=== PATIENT | female | born 1960 | race Caucasian/White ===

== ENCOUNTER 2016-06-20 07:51 | Day surgery (SDC) | payer BC, OTHER ==
[2016-06-20] MEDS ORDERED: fentaNYL 250 MCG/5 ML VIAL IVP ONE (08:08)
[2016-06-20] MEDS ORDERED: LACTATED RINGERS 1,000 ML IV ONE (08:08)
[2016-06-20] MEDS ORDERED: MIDAZOLAM 2 MG/2 ML VIAL IVP ONE (08:08)
== END 2016-06-20 07:52 | disposition home or self-care (01) ==
PROC: 0DBL8ZX Excision of Transverse Colon, Via Natural or Artificial Opening Endoscopic, Diagnostic (ICD-10-PCS; 2016-06-20)
PROC: 0DBN8ZX Excision of Sigmoid Colon, Via Natural or Artificial Opening Endoscopic, Diagnostic (ICD-10-PCS; 2016-06-20)
PROC: 0DBH8ZX Excision of Cecum, Via Natural or Artificial Opening Endoscopic, Diagnostic (ICD-10-PCS; principal; 2016-06-20 09:00)
DX: K52.9 Noninfective gastroenteritis and colitis, unspecified (principal); K92.1 Melena; R19.5 Other fecal abnormalities; K57.30 Diverticulosis of large intestine without perforation or abscess without bleeding; K64.8 Other hemorrhoids; E03.9 Hypothyroidism, unspecified
CPT/HCPCS: 45380; J3010; J7120

== ENCOUNTER 2017-08-15 10:22 | Outpatient (CLI) | payer OTHER ==
--- NOTE | 2017-08-15 18:27 | Mammography Report ---
DIGITAL SCREENING MAMMOGRAM: 08/15/2017 HISTORY: Asymptomatic for routine screening. COMPARISON: 10/09/2014 and 01/30/2012. TECHNIQUE: Bilateral digital CC and MLO projections. FINDINGS: There are scattered fibroglandular densities. There is no dominant mass, architectural distortion, skin thickening, or clustered suspicious microcalcifications. Vascular calcifications are present. No interval change. IMPRESSION: NEGATIVE. BIRADS category: 1, negative. Suggest routine followup screening in 12 months. STANDARD QUALIFYING STATEMENTS 1. This examination was reviewed with the aid of Computed-Aided Detection (CAD) . 2. A negative or benign imaging report should not delay biopsy if clinically suspicious findings are present. Consider surgical consultation if warranted. More than 5 % of cancers are not identified by imaging. 3. Dense breasts may obscure an underlying neoplasm. TD: 08/15/2017 18:26 YARY
== END 2017-08-15 10:23 | disposition home or self-care (01) ==
LOC: DI.N 10:22
PROVIDERS: ATTEND Family Medicine
DX: Z12.31 Encounter for screening mammogram for malignant neoplasm of breast (principal)
CPT/HCPCS: 77067

== ENCOUNTER 2017-12-19 08:00 | Outpatient (CLI) | payer OTHER ==
[2017-12-19 19:31] LABS: BILIRUBIN,URINE NEGATIVE (NEGATIVE); GLUCOSE, URINE (UA) NEGATIVE (NEGATIVE); KETONES,URINE (UA) NEGATIVE (NEGATIVE); LEUKOCYTE ESTERASE, URINE NEGATIVE (NEGATIVE); NITRITE,URINE NEGATIVE (NEGATIVE); OCCULT BLOOD,URINE NEGATIVE (NEGATIVE); PH,URINE 5.5 PH (5.0-7.5); PROTEIN,URINE NEGATIVE (NEGATIVE); UROBILINOGEN,URINE 0.2 (NORMAL) E.U./dL (NORMAL)
[2017-12-19 19:41] LABS: BACTERIA,URINE None Seen /HPF (None Seen); CLARITY,URINE CLEAR (CLEAR); RBC,URINE None Seen /HPF (0-5); SQUAMOUS EPITHELIAL CELL,UR FEW Squamous (<= Few)
== END 2017-12-19 08:01 | disposition home or self-care (01) ==
LOC: LAB.R 08:00
PROVIDERS: ATTEND Obstetrics & Gynecology
DX: N81.10 Cystocele, unspecified (principal)
CPT/HCPCS: 81001; 87086

== ENCOUNTER 2017-12-19 11:18 | Outpatient (CLI) | payer OTHER ==
[2017-12-19 12:42] LABS: HB2 TOTAL 14.7 g/dL; HEMOGLOBIN A1C 0.59 g/dL; HEMOGLOBIN A1C % 5.8 % (4.6-6.2)
== END 2017-12-19 11:19 | disposition home or self-care (01) ==
LOC: LAB 11:18
PROVIDERS: ATTEND Obstetrics & Gynecology
DX: Z13.29 Encounter for screening for other suspected endocrine disorder (principal); N81.10 Cystocele, unspecified
CPT/HCPCS: 36415; 81001; 83036; 87086

== ENCOUNTER 2020-08-27 08:11 | Outpatient (CLI) | payer OTHER ==
--- NOTE | 2020-08-28 12:38 | Mammography Report ---
BILATERAL DIGITAL SCREENING MAMMOGRAM 3D/2D: 08/27/2020 CLINICAL: Routine screening. Comparison is made to exams dated: 08/15/2017 mammogram, 10/09/2014 mammogram, and 01/30/2012 mammogram - [facility]. There are scattered fibroglandular elements in both breasts. There is a new focal asymmetry in the left breast at 12 o'clock posterior depth. No other significant masses, calcifications, or other findings are seen in either breast. IMPRESSION: INCOMPLETE: NEEDS ADDITIONAL IMAGING EVALUATION The new focal asymmetry in the left breast is indeterminate. Additional views with possible ultrasou nd are recommended. This exam was interpreted at Station ID: [id number]. NOTE: For mammograms, a report in lay terms will be sent to the patient. Approximately 15% of breast malignancies will not be visualized mammographically. In the management of a palpable breast mass, a negative mammogram must not discourage biopsy of a clinically suspicious lesion. Electronically Signed By: Avinash dominguez/angelica:08/27/2020 09:10:42 ACR BI-RADS Category 0: Incomplete 3340F PARENCHYMAL PATTERN: (A) - The breast(s) demonstrate(s) scattered fibroglandular densities. BI-RADS CATEGORY: (0) - 0 Mammo and [place] [id number] Immediate follow-up LATERALITY: (L)
== END 2020-08-27 08:12 | disposition home or self-care (01) ==
LOC: DI.N 08:11
PROVIDERS: ATTEND Family Medicine
DX: Z12.31 Encounter for screening mammogram for malignant neoplasm of breast (principal); R92.8 Other abnormal and inconclusive findings on diagnostic imaging of breast

== ENCOUNTER 2020-09-24 08:10 | Outpatient (CLI) | payer OTHER ==
--- NOTE | 2020-09-25 10:49 | Mammography Report ---
UNILATERAL LEFT DIGITAL DIAGNOSTIC MAMMOGRAM 3D/2D: 09/24/2020 CLINICAL: Patient returns today to evaluate a focal asymmetry in the left breast. Comparison is made to exams dated: 08/27/2020 mammogram, 08/15/2017 mammogram, 10/09/2014 mammogram, and 01/30/2012 mammogram - [facility]. There are scattered fibroglandular elements in left breast. There is a 0.8 cm oval equal density focal asymmetry with an indistinct margin in the left breast at 12 o'clock posterior depth. There also is an adjacent 0.5 cm oval equal density focal asymmetry with an indistinct margin in the left breast at 11 o'clock posterior depth. No other significant masses or calcifications are seen in the breast. IMPRESSION: INCOMPLETE: NEEDS ADDITIONAL IMAGING EVALUATION The 0.8 cm oval equal density focal asymmetry in the left breast at 12 o'clock posterior depth is ind eterminate. An ultrasound is recommended. The 0.5 cm oval equal density focal asymmetry in the left breast at 11 o'clock posterior depth is ind eterminate. An ultrasound is recommended. Ultrasound will be performed immediately following the current exam. This exam was interpreted at Station ID: [id number]. NOTE: For mammograms, a report in lay terms will be sent to the patient. Approximately 15% of breast malignancies will not be visualized mammographically. In the management of a palpable breast mass, a negative mammogram must not discourage biopsy of a clinically suspicious lesion. Electronically Signed By: Simon Beach M.D. ddp/:09/24/2020 09:07:29 ACR BI-RADS Category 0: Incomplete 3340F PARENCHYMAL PATTERN: (A) - The breast(s) demonstrate(s) scattered fibroglandular densities. BI-RADS CATEGORY: (0) - 0 Ultrasound [id number] Immediate follow-up LATERALITY: (B)
--- NOTE | 2020-09-25 10:49 | Ultrasound Report ---
LIMITED ULTRASOUND OF LEFT BREAST: 09/24/2020 CLINICAL: Patient returns today to evaluate a focal asymmeties in the left breast. Comparison is made to exams dated: 09/24/2020 mammogram, 08/27/2020 mammogram, 08/15/2017 mammogram, 09/13 mammogram, and 01/30/2012 mammogram - [facility]. Color flow and real-time ultrasound of the left breast 11-12 o'clock region were performed on the ar eas of interest. Gomes scale images of the real-time examination were reviewed. There is a 0.9 cm x 0.5 cm x 0.6 cm oval mass with an indistinct margin in the left breast at 11 o'cl ock posterior depth 7-8 cm from the nipple. This oval mass is hypoechoic. This correlates with mamm ography findings. Color flow imaging demonstrates that there is vascularity present. There also is an adjacent 0.6 cm x 0.3 cm x 0.5 cm oval mass with an indistinct margin in the left br east at 11 o'clock posterior depth 7-8 cm from the nipple. This oval mass is hypoechoic. This corre lates with mammography findings. Color flow imaging demonstrates that there is an adjacent vasculari ty. IMPRESSION: SUSPICIOUS OF MALIGNANCY The 0.9 cm x 0.5 cm x 0.6 cm oval mass in the left breast at 11 o'clock posterior depth is suspicious of malignancy. An ultrasound guided biopsy is recommended. The 0.6 cm x 0.3 cm x 0.5 cm oval mass in the left breast at 11 o'clock posterior depth is suspicious of malignancy. An ultrasound guided biopsy is recommended. The findings were discussed with the patient at the conclusion of the study by Dr. Light. This exam was interpreted at Station ID: [id number]. Electronically Signed By: Simon Beach M.D. ddp/:09/24/2020 11:28:22 Ultrasound BI-RADS: 4 Suspicious for malignancy BI-RADS CATEGORY: (4) - 4 None [id number] Immediate follow-up LATERALITY: ()
== END 2020-09-24 08:11 | disposition home or self-care (01) ==
LOC: DI 08:10
PROVIDERS: ATTEND Family Medicine
DX: N63.22 Unspecified lump in the left breast, upper inner quadrant (principal)

== ENCOUNTER 2020-09-30 12:11 | Outpatient (CLI) | payer OTHER ==
[2020-09-30] MEDS ORDERED: LIDOCAINE MPF 1%-EPI 1:200000 30 ML VIAL ONE (12:23)
[2020-09-30] MEDS ORDERED: BUFFERED LIDOCAINE 10 ML SYRINGE ONE (12:23)
[2020-09-30] MEDS ORDERED: LIDOCAINE MPF 1%-EPI 1:200000 30 ML VIAL SUBQ ONE (16:30)
[2020-09-30] MEDS ORDERED: BUFFERED LIDOCAINE 10 ML SYRINGE IU ONE (18:11)
--- NOTE | 2020-10-01 07:07 | Mammography Report ---
UNILATERAL LEFT DIGITAL DIAGNOSTIC MAMMOGRAM 3D/2D: 09/30/2020 CLINICAL: Post left breast ultrasound biopsy clip placement imaging. Comparison is made to exams dated: 09/24/2020 mammogram, 08/15/2017 mammogram, 08/27/2020 mammogram, 09/13 mammogram, and 01/30/2012 mammogram - [facility]. There are scattered fibrog landular elements in left breast. There is a marker clip in the appropriate position in the left breast at 11 o'clock posterior depth. This marker clip placement is at the biopsy site. IMPRESSION: POST PROCEDURE MAMMOGRAM FOR MARKER PLACEMENT There was a successful marker clip placement in the left breast posterior depth. This exam was interpreted at Station ID: [id number]. NOTE: For mammograms, a report in lay terms will be sent to the patient. Approximately 15% of breast malignancies will not be visualized mammographically. In the management of a palpable breast mass, a negative mammogram must not discourage biopsy of a clinically suspicious lesion. Electronically Signed By: Beatriz Allen M.D. [facility]/:09/30/2020 14:29:46 ACR BI-RADS Category Post-procedure mammogram for marker placement PARENCHYMAL PATTERN: (A) - The breast(s) demonstrate(s) scattered fibroglandular densities. BI-RADS CATEGORY: () - Unspecified - other recall n/a LATERALITY: (B)
--- NOTE | 2020-10-05 09:48 | Ultrasound Report ---
ULTRASOUND GUIDED BIOPSY LEFT BREAST USING VACUUM DEVICE WITH MARKING DEVICE INSERTED AND POST MAMMOG RAPHIC IMAGIN09/30/2020 CLINICAL: Post left breast ultrasound biopsy, clip placement imaging. PATIENT CONSENT: Risks (minor bleeding, infection, vasovagal reaction and repeat procedure), benefits and alternatives were explained to the patient and written informed consent was obtained. Correlation is made to exams dated: 09/24/2020 ultrasound, 09/24/2020 mammogram, 08/27/2020 mammogram, 08/15/2017 mammogram, 10/09/2014 mammogram, and 01/30/2012 mammogram - [facility]. An ultrasound guided biopsy using real-time ultrasound was performed for the indistinct oval mass loc ated in the left breast at 11 o'clock posterior depth. The skin was prepped in the usual manner. Lo rosalia anesthetic was administered to the access site. A skin clemente was made in the breast. The abnorma lity was approached from the lateral aspect. A 10 gauge biopsy needle was placed adjacent to the abn ormality under ultrasound guidance. Once the needle was documented to be in the correct location, fi ve specimens were obtained using the Mammotome biopsy system. A HydroMark biopsy clip was inserted i nto the biopsy cavity. A sterile dressing was applied to the access site. Post procedure mammograph ic imaging demonstrates the location device at the targeted area. The specimens were sent to the lab oratory for pathological analysis. Please note second 0.6 x 0.3 x 0.5 oval mass at the 11:00 o'clock position in the left breast was not visualized at the time of the procedure and could not be biopsied. IMPRESSION: ULTRASOUND GUIDED BIOPSY MALIGNANT Ultrasound guided biopsy of the mass in the left breast at 11 o'clock posterior depth was successful. Pathology indicates malignant invasive ductal carcinoma. A surgical/oncologic consultation is fabienne mmended. Second 0.6 x 0.3 x 0.5 oval mass at the 11:00 o'clock position in the left breast was not visualized at the time of the procedure and could not be biopsied. If clinically indicated, breast MRI could be obtained to evaluate for extent of disease or additional findings. This exam was interpreted at Station ID: [id number]. Beatriz Whitman M.D. [facility]/:10/05/2020 09:31:06 BI-RADS CATEGORY: () - Unspecified - other recall n/a LATERALITY: (B)
== END 2020-09-30 12:12 | disposition home or self-care (01) ==
LOC: DI 12:11
PROVIDERS: ATTEND Family Medicine
DX: C50.212 Malignant neoplasm of upper-inner quadrant of left female breast (principal); Z17.0 Estrogen receptor positive status [ER+]
CPT/HCPCS: 19083; 87427; 88305; 88341; 88342

== ENCOUNTER 2021-01-04 09:32 | Day surgery (SDC) | payer OTHER ==
[~2021-01-04 09:32] MED LIST: BUFFERED LIDOCAINE 10 ML SYRINGE ONE
[2021-01-04] MEDS ORDERED: LACTATED RINGERS 1,000 ML IV ONE ×2 (10:23→16:37)
[2021-01-04] MEDS ORDERED: ceFAZolin 2 GM/50 ML 2 GM/50 ML BAG IV ONE (10:24)
[2021-01-04] MEDS ORDERED: BUPIVACAINE 0.5% PF 10 ML VIAL ONE (13:53)
[2021-01-04] MEDS ORDERED: LIDOCAINE 2%-EPI 1:100000 20 ML MDV ONE (13:53)
--- NOTE | 2021-01-04 14:02 | ANESTHESIA ---
Pre-Anesthesia VS, & Labs - Diagnosis L Breast CA - Procedure L breast lumpectomy, sentinel node biopsy Vital Signs: Temp Pulse Resp BP Pulse Ox 36.2 C L 75 20 148/88 H 99 01/04/21 09:47 01/04/21 09:47 01/04/21 09:47 01/04/21 09:47 01/04/21 09:47 Height: 5 ft 6 in Weight (kg): 96.5 kg Body Mass Index: 34.3 BMI Classification: Obese - NPO >8 hours Last Fluid Intake: sips h2o with synthroid - Is Patient ?: No - Lab Results Lab results reviewed: Yes Home Medications and Allergies Levothyroxine Sodium 75 mcg PO DAILY 06/17/16 Cholecalciferol (Vitamin D3) [Vitamin D3] 2,000 unit PO DAILY 11/04/20 Allergies/Adverse Reactions: Allergies Allergy/AdvReac Type Severity Reaction Status Date / Time No Known Drug Allergies Allergy Verified 11/04/20 15:20 Anes History & Medical History - Anesthetic History Anesthesia Complications: reports: No previous complications Family history of Anesthesia Complications: Denies Family history of Malignant Hyperthermia: Denies - Medical History Cardiovascular: reports: None Pulmonary: reports: None Gastrointestinal: reports: None Urinary: reports: None Musculoskeletal: reports: None Endocrine/Autoimmune: reports: HyPOthyroidism Skin: reports: None Smoking Status: Former smoker History of Cancer?: Yes (L breast) - Surgical History General: reports: Colonoscopy Gynecologic: reports: Other Exam General: Alert, Oriented x3, Cooperative Dental: WNL Mouth Openin Fingerbreadth Neck Mobility: Normal Mallampati classification: III Thyromental Distance: 4-6 cm Respiratory: Lungs clear, Normal breath sounds, No respiratory distress Cardiovascular: Regular rate Neurological: Normal speech Mental/Cognitive Status: Alert/Oriented X3, Normal for patient Plan Anesthesia Type: General Consent for Procedure(s) Verified and Reviewed: Yes Code Status: Attempt Resuscitation ASA classification: 3-Severe systemic disease Is this case an emergency?: No
[2021-01-04] MEDS ORDERED: fentaNYL 100 MCG/2 ML VIAL IVP PRN (14:07)
[2021-01-04] MEDS ORDERED: NALOXONE 0.4 MG/ML VIAL IVP PRN (14:07)
[2021-01-04] MEDS ORDERED: ATROPINE ABBOJECT 1 MG/10 ML SYRINGE IVP PRN (14:07)
[2021-01-04] MEDS ORDERED: METOCLOPRAMIDE 10 MG/2 ML VIAL IVP PRN (14:07)
[2021-01-04] MEDS ORDERED: ePHEDrine 50 MG/ML VIAL IVP PRN (14:07)
[2021-01-04] MEDS ORDERED: HYDROmorphone 0.5 MG/0.5 ML SYRINGE IVP PRN (14:07)
[2021-01-04] MEDS ORDERED: MORPHINE 2 MG/ML CARPUJECT IVP PRN (14:07)
[2021-01-04] MEDS ORDERED: ONDANSETRON 4 MG/2 ML VIAL IVP PRN ×2 (14:07→16:40)
--- NOTE | 2021-01-04 14:10 | Nuclear Medicine Report ---
PROCEDURE: Lymph Node Scintigraphy INDICATIONS: LEFT BREAST CA RADIOPHARMACEUTICAL: 0.5-1.0 mCi Millipore filtered Tc-99m sulfur colloid. TECHNIQUE: The area around the nipple was prepped and draped in a sterile fashion. Tc-99m sulfur colloid was in jected intra-dermally in the outer edge of the areola in the left breast. Images were obtained subse quently. A body contour outline was obtained. FINDINGS: There is a single lymph node(s) in the ipsilateral axilla, which is marked on the skin and the image s for referring physician. IMPRESSION: Administration of radiotracer into the left breast periareolar region for intra-operativ e sentinel lymph node localization. Overlying skin in the area of the solitary sentinel node was mar ked for further identification during operative procedure. Reviewed by: Luis Alberto Ellsworth MD on 01/04/2021 2:08 PM PDT Approved by: Luis Alberto Ellsworth MD on 01/04/2021 2:08 PM PDT Station ID: [id number]
[2021-01-04] MEDS ORDERED: MIDAZOLAM 2 MG/2 ML VIAL ONE (14:23)
[2021-01-04] MEDS ORDERED: fentaNYL 100 MCG/2 ML VIAL ONE (14:23)
[2021-01-04] MEDS ORDERED: LIDOCAINE-PF 2% 10 ML AMP SUBQ ONE (14:23)
[2021-01-04] MEDS ORDERED: LIDOCAINE-MPF 2% 5 ML VIAL ONE (14:24)
[2021-01-04] MEDS ORDERED: PROPOFOL 200 MG/20 ML VIAL IVP ONE ×2 (14:24→15:45)
[2021-01-04] MEDS ORDERED: LACTATED RINGERS 1,000 ML IV SCH (15:00)
[2021-01-04] MEDS ORDERED: ONDANSETRON 4 MG/2 ML VIAL ONE (15:45)
[2021-01-04] MEDS ORDERED: DEXAMETHASONE 4 MG/ML VIAL ONE (15:45)
[2021-01-04] MEDS ORDERED: LIDOCAINE 2%-EPI 1:100000 20 ML MDV SUBQ ONE (16:10)
[2021-01-04] MEDS ORDERED: BUPIVACAINE 0.5% PF 30 ML VIAL SUBQ ONE (16:10)
--- NOTE | 2021-01-04 16:31 | OPERATIVE REPORT ---
Operative Report - General Procedure Date: 01/04/21 Planned Procedure: Left breast lumpectomy and SN biopsy after needle localization and mapping. Pre-Op Diagnosis: Biopsy-proven left breast cancer Procedure Performed: Left breast lumpectomy and SN biopsy after needle localization and mapping. Post Op Diagnosis: Biopsy-proven left breast cancer - Procedure Note Primary Surgeon: Radha Anesthesia Provider: MARINA Raphael Anesthesia Technique: General LMA, Local Pathology: 1. Left breast specimen marked for orientation 2. Left axillary sentinel node Estimated Blood Loss (mL): 15 Indications: Biopsy proven left breast cancer Findings: Target lesion well centered in the specimen Complications: None apparent - Other Other Information/Narrative: After obtaining informed consent, the patient was brought to the operating room and placed in the supine position on the operating table. Following successful induction of general endotracheal anesthesia, appropriate padding of all bony prominences, and placement of appropriate monitors, the left breast was prepped and draped in the standard surgical fashion. A timeout was held per scope protocol. All elements of the surgical safety checklist were followed before, during, and after the procedure. We began the procedure with a sentinel node dissection. The site of the brightest node had been marked in radiology with 2 skin marker axis. The neoprobe was used to identify the site of greatest uptake at level 2 in the patient's axilla. The patient is quite thin and has minimal axillary tissue. A n incision was created over this area of uptake and carried through the skin and subcutaneous tissue to enter the axillary node packet. The sentinel node was easily identified and in the expected position seen on imaging. It was mildly enlarged and firm. It was carefully dissected free from surrounding stop structures sharply, all lymphatics and vasculature were addressed with clips prior to division. The node was liberated into the field. 10-second counts are recorded and were > 3700. Survey of the axilla revealed no other hot targets. Background in the axilla was 8-16 and background in the room was 0. The axilla was examined for hemostasis. It was irrigated with warm water and aspirated free of fluid and particulate matter. The axillary incision was then closed in 2 layers with Vicryl and Monocryl sutures. We turned our attention to the left breast mass. The area over the mass and in the periareolar region was infiltrated with a mixture of local anesthetics to cry to field block. A periareolar incision was then created in the Palpable mass carefully dissected sharply from the dermis anteriorly and from the muscle posteriorly. The retromammary bursa was not adherent to the underlying muscle. The mass was reviewed moved in a single piece in a medial to lateral fashion. It was marked with a short stitch superior, long stitch lateral, and double stitch anterior. It was finally liberated sharply and delivered into the field. The wound was checked for hemostasis. It was irrigated again with warm water. The biopsy cavity was then marked for orientation with clips peripherally and centrally.The wound was then closed in 2 layers with Vicryl and Monocryl sutures. All sponge, needle, and instrument counts were correct at the conclusion of the case. The patient was let awakened anesthesia without difficulty and taken to the postanesthesia care unit in good condition.
[2021-01-04] MEDS ORDERED: oxyCODONE 5 MG TABLET PO PRN (16:40)
[2021-01-04] MEDS ORDERED: ACETAMINOPHEN 325 MG TABLET PO PRN (16:40)
[2021-01-04] MEDS ORDERED: IBUPROFEN 600 MG TABLET PO PRN (16:40)
[2021-01-04 17:11] VITALS: BP 134/68
--- NOTE | 2021-01-04 17:32 | ANESTHESIA POST OP EVALUATION ---
Anesthesia Post Eval - Post Anesthesia Eval Vitals: Last Vital Signs Temp 36.7 C 01/04/21 17:10 Pulse 70 01/04/21 17:10 Resp 14 01/04/21 17:10 BP 134/68 H 01/04/21 17:10 Pulse Ox 94 01/04/21 17:10 CV Function Including HR & BP: Stable Pain Control: Satisfactory Nausea & Vomiting: Negative Mental Status: Baseline Respiratory Status: Airway Patent Hydration Status: Satisfactory Anesthesia Complications: None
--- NOTE | 2021-01-05 08:05 | Mammography Report ---
NEEDLE LOCALIZATION: 01/04/2021 CLINICAL: Post wire placement. Correlation is made to exams dated: 11/27/2020 breast MRI - [facility], 09/30/2020 ultrasound bio psy, 09/30/2020 mammogram, 09/24/2020 ultrasound, 09/24/2020 mammogram, and 08/27/2020 mammogram - [facility]. Wire localization of a mass and biopsy clip was performed with mammographic guidance, with the [place] single wire tip adjacent to the clip on both views on completion of the exam. IMPRESSION: NEEDLE LOCALIZATION Successful wire localization of the area of surgical concern via mammographic [place]y wire placement. This exam was interpreted at Station ID: [id number]. Lusi Alberto Ellsworth M.D. sdh/:01/04/2021 17:06:48 BI-RADS CATEGORY: () - Unspecified - other recall n/a LATERALITY: (B)
--- NOTE | 2021-01-05 08:05 | Mammography Report ---
SPECIMEN: 01/04/2021 CLINICAL: Left breast specimen. Correlation is made to exams dated: 01/04/2021 localization - [facility], 11/27/2020 breast MRI - [facility], 09/30/2020 ultrasound biopsy, 09/30/2020 mammogram, 09/24/2020 ultrasound , and 09/24/2020 mammogram - [facility]. The specimen from the OR contains the mass, the loc clip from prior biopsy and the loc wire placed to day. IMPRESSION: SPECIMEN Successful specimen review, all necessary items present. This exam was interpreted at Station ID: [id number]. Luis Alberto Ellsworth M.D. sdh/:01/04/2021 17:08:39 BI-RADS CATEGORY: () - Unspecified - other recall n/a LATERALITY: (B)
== END 2021-01-04 09:33 | disposition home or self-care (01) ==
LOC: DI 09:32
PROVIDERS: ATTEND Surgery
PROC: 07B60ZX Excision of Left Axillary Lymphatic, Open Approach, Diagnostic (ICD-10-PCS; 2021-01-04)
PROC: 0HBU0ZZ Excision of Left Breast, Open Approach (ICD-10-PCS; principal; 2021-01-04 13:30)
DX: C50.012 Malignant neoplasm of nipple and areola, left female breast (principal); Z17.1 Estrogen receptor negative status [ER-]; E03.9 Hypothyroidism, unspecified; E66.9 Obesity, unspecified; Z68.34 Body mass index [BMI] 34.0-34.9, adult; Z79.82 Long term (current) use of aspirin; Z79.899 Other long term (current) drug therapy; Z87.891 Personal history of nicotine dependence
CPT/HCPCS: 78195

== ENCOUNTER 2021-01-12 09:42 | Outpatient (CLI) | payer OTHER ==
--- NOTE | 2021-01-12 16:13 | DEXA Report ---
PROCEDURE: Dexa Spine and/or Hip INDICATIONS: POST MENOPAUSAL/OSTEOPOROSIS TECHNIQUE: Dual energy x-ray absorptiometry (DXA) was performed on a [employer]act[employer] Vis[employer] Système System. Regions measur ed are the AP Spine, femoral neck, and if needed forearm. COMPARISON: None. FINDINGS: Lumbar Spine: Bone Mineral Density 1.488 g/cm/cm,T score 2.6, normal Left Hip: Bone Mineral Density 1.155 g/cm/cm,T score 1.2, normal Left Femoral Neck: Bone Mineral Density 0.993 g/cm/cm, T score -0.3, normal (T score greater or equal to -1.0: NORMAL) (T score from -1.1 to -2.4: OSTEOPENIA) (T score less than or equal to -2.5 to: OSTEOPOROSIS) Impression: Normal bone marrow density. Patients with diagnosis of osteoporosis or osteopenia should have regular bone mineral density assess ment. For those eligible for Medicare, routine testing is allowed once every 2 years. Testing frequ ency can be increased for patients who have rapidly progressing disease or for those who are receivin g medical therapy to restore bone mass. Reviewed by: Beatriz Allen MD, PhD on 01/12/2021 4:12 PM PDT Approved by: Beatriz Allen MD, PhD on 01/12/2021 4:12 PM PDT Station ID: [id number]
== END 2021-01-12 09:43 | disposition home or self-care (01) ==
LOC: DI 09:42
PROVIDERS: ATTEND Internal Medicine
DX: Z78.0 Asymptomatic menopausal state (principal); M81.0 Age-related osteoporosis without current pathological fracture